=== PATIENT | female | born 1950 | race Caucasian/White ===

== ENCOUNTER 2022-09-27 12:59 | Outpatient (CLI) | payer MEDICARE, SELFPAY ==
--- NOTE | ~2022-09-27 | XR_ITS ---
EXAMINATION: XR shoulder LT min 2V DATE: 09/27/2022 13:29 INDICATION: Posterior left shoulder pain radiating to the neck. TECHNIQUE: 5 views of left shoulder were obtained. COMPARISON: None. FINDINGS: Bone alignment is normal. No fracture. There is mild osteoarthritis of glenohumeral joint a nd severe osteoarthritis of acromioclavicular joint. Calcified left hilar lymph nodes are consistent with old granulomatous disease. IMPRESSION: 1. Polyarticular osteoarthritis. Reviewed, dictated and finalized at location A.
== END 2022-09-27 13:00 | disposition home or self-care (01) ==
LOC: CHSIMG 13:08
DX: M25.512 Pain in left shoulder (principal); M19.012 Primary osteoarthritis, left shoulder
CPT/HCPCS: 73030

== ENCOUNTER 2024-02-16 12:59 | Emergency (ER) | payer MEDICARE, SELFPAY ==
[2024-02-16] VITALS (9 sets, daily range): BP systolic 123–138; BP diastolic 63–112; PULSE 66–75; RESP 16–22; TEMP 36.4; O2SAT 94–98
--- NOTE | ~2024-02-16 | CT_ITS ---
EXAMINATION: CTA BRAIN/CAROTID DATE: 02/16/2024 15:02 INDICATION: Headache TECHNIQUE: Computed tomographic angiography (CTA) of the head and neck was performed with 100 mL Omni paque-350 intravenous contrast. Multiplanar reconstructions and maximum intensity projection 3D-recon structions of the carotid arteries and of the intracranial arteries were created by the technologist on a separate workstation. Precontrast CT of the head was also obtained. Automated exposure control and iterative reconstruction technique were employed.The dose-length product was 1630.33 mGy-cm. COMPARISON: None. FINDINGS: Carotid arteries: Visualized aortic arch is normal in caliber with no dissection. The left vertebral artery is mildly d ominant. Small amount of nonhemodynamically significant atherosclerotic plaque at the origin of the l eft vertebral artery. There is atherosclerotic plaque with 20%% stenosis of the right carotid bulb re lative to normal distal artery lumen diameter (NASCET criteria). There is atherosclerotic plaque with 0% stenosis of the left carotid bulb relative to normal distal artery lumen diameter. Visualized upp er lungs are clear. Cervical soft tissues are unremarkable. Moderate to severe cervical spondylosis. Head: No acute intracranial hemorrhage, acute infarction or abnormal extra axial fluid collection. Small ol d lacunar infarct at the right side of the onel. There is moderate scattered white matter hypoattenua tion consistent with chronic small vessel ischemic disease. Symmetric prominence of the sulci consist ent with mild age-appropriate diffuse cerebral volume loss. Ventricles are normal and symmetric. No m ass/mass effect. No abnormally enhancing brain lesions on the postcontrast images. The orbits, [place] sinuses and mastoid air cells are normal. Intracranial arteries Left vertebral artery is dominant. There is a small amount of nonhemodynamically significant scleroti c plaque at the bilateral carotid siphons. There is no hemodynamically significant stenosis in the ve rtebral, basilar and internal carotid arteries. There are no aneurysms identified. Both A1 and P1 se gments are patent. There is a patent anterior communicating artery. Cerebral arterial arborization ap pears symmetric. IMPRESSION: 1. 20% stenosis of the right carotid bulb relative to normal distal artery lumen diameter (NASCET cri teria). 2. Small amount of atherosclerotic plaque with 0% stenosis of the left carotid bulb relative to tommie l distal artery lumen diameter. 3. Small old lacunar infarct at the right onel. No acute intracranial process or abnormally enhancing brain lesions. 4. Moderate scattered white matter hypoattenuation consistent with chronic small vessel ischemic dise ase. 5. Unremarkable cerebral CT angiogram with no hemodynamic significant stenosis, aneurysm or thrombosi s. Reviewed, dictated and finalized at location B. IMPRESSION: 1. 20% stenosis of the right carotid bulb relative to normal distal artery lume n diameter (NASCET criteria). 2. Small amount of atherosclerotic plaque with 0% stenosis of the left carotid bulb relative to normal distal artery lumen diameter. 3. Small old lacunar infarct at the right onel. No acute intracranial process o r abnormally enhancing brain lesions. 4. Moderate scattered white matter hypoattenuation consistent with chronic smal l vessel ischemic disease. 5. Unremarkable cerebral CT angiogram with no hemodynamic significant stenosis, aneurysm or thrombosis.
--- NOTE | 2024-02-16 13:40 | PC.NURSE ---
Pt resting comfortably. Son at bedside.
--- NOTE | 2024-02-16 13:47 | ECG_ITS ---
Test Date: 2024-02-16 14:02:02 Measurements Intervals [place] Rate: 67 P: 70 MI: 156 QRS: -12 QRSD: 98 T: 88 QT: 326 QTc: 345 Interpretive Statements SINUS RHYTHM DELAYED PRECORDIAL R/S TRANSITION NONSPECIFIC ST-T WAVE ABNORMALITY- DIFFUSE LEADS BORDERLINE ECG No previous ECG available for comparison Electronically Signed On 02-16-2024 14:16:00 CDT by Jagdish Newman D.O.
--- NOTE | 2024-02-16 13:54 | ED.NEUROSD ---
HPI - Neuro Symptoms/Deficit General Chief Complaint: Headache Stated Complaint: weakness Time Seen by Provider: 02/16/24 13:08 Source: patient and family (son) Mode of arrival: ambulatory Limitations: no limitations History of Present Illness HPI Narrative: 73 year old female is brought to the Emergency Department by son. Son is primary historian. Patient was seen by her PCP [Dr. Moore in [place]] today and told to come here for work up and admission. Son states they believe she had a TIA a week ago. 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 She complains of generalized weakness. She has frontal headache and some neck pain. Onset (ago): week(s) (1) Timing confirmed by: family member (son) Location: other (generalized) History of same: Yes Quality: weak Relieving factors: none Exacerbating factors: none On Anticoagulants: Yes Associated symptoms: confusion, headaches and weakness Treatments Prior to Arrival: none Related Data Home Medications Medication Instructions Recorded Confirmed albuterol sulfate 90 mcg/actuation 2 puff inhalation Q4-6H 02/16/24 02/16/24 aerosol inhaler atorvastatin 40 mg tablet 40 mg PO DAILY 02/16/24 02/16/24 clopidogrel 75 mg tablet 75 mg PO DAILY 02/16/24 02/16/24 dexamethasone sodium phosphate 0.1 3 drp EACH EAR BID 02/16/24 02/16/24 % eye drops diclofenac sodium 1 % topical gel 2 g topical BID 02/16/24 02/16/24 levothyroxine 125 mcg tablet 125 mcg PO DAILY 02/16/24 02/16/24 linaclotide 290 mcg capsule 290 mcg PO DAILY 02/16/24 02/16/24 (Linzess) omeprazole 40 mg capsule,delayed 40 mg PO DAILY 02/16/24 02/16/24 release oxybutynin chloride 10 mg 10 mg PO DAILY 02/16/24 02/16/24 tablet,extended release 24 hr potassium chloride 10 mEq 10 meq PO BID 02/16/24 02/16/24 capsule,extended release sertraline 100 mg tablet 100 mg PO DAILY 02/16/24 02/16/24 triamcinolone acetonide 0.1 % 1 applic topical BID 02/16/24 02/16/24 topical cream Allergies Allergy/AdvReac Type Severity Reaction Status Date / Time Penicillins Allergy Rash Verified 02/16/24 13:10 Review of Systems Review of Systems: All systems reviewed & are unremarkable except as noted in HPI and below Constitutional: Constitutional: Reports as per HPI, Denies chills, Reports fatigue, Denies fever(s) and Reports weakness Eyes: Eyes: Reports as per HPI and Denies change in vision ENT: Reports system reviewed and no additional complaints, except as documented Cardiovascular: Cardiovascular: Reports as per HPI and Denies chest pain Respiratory: Respiratory: Reports as per HPI, Denies cough and Denies dyspnea Gastrointestinal: Gastrointestinal: Reports as per HPI, Denies abdominal pain, Denies diarrhea, Denies nausea and Denies vomiting Genitourinary: Genitourinary: Reports no additional female genitourinary complaints, Denies nocturia and Denies dysuria Musculoskeletal: Musculoskeletal: Reports no additional musculoskeletal complaints Comments: generalized weakness Integumentary/Breasts: Skin/Breast: Reports system reviewed and no additional complaints, except as docu Neurologic: Reports system reviewed and no additional complaints, except as documented, Reports confusion, Reports headache(s), Denies focal weakness, Denies numbness and Reports weakness Psychiatric: Psychiatric: Reports no additional psychiatric complaints Endocrine: Endocrine: Reports no additional endocrine complaints Hematologic/Lymphatic: Hematologic/Lymphatic: Reports no additional hematologic/lymphatic complaints Allergic/Immunologic: Allergic/Immunologic: Reports no additional allergic/immunologic complaints Exam Const: General: healthy appearing, no acute distress and alert Nutritional Appearance: well nourished Orientation/consciousness: patient oriented x3 Limitations: no limitations HENMT: Head: normal to inspection Ears: external ears normal Face/Nose/Sinus: Normal external nose present Face and sinus: normal
[2024-02-16 14:16] LABS: Basophils Absolute Auto 0.06 K/mm3 (0.00-0.10); Basophils Percent Auto 1.1 % (0.0-1.0); Eosinophils Absolute Auto 0.13 K/mm3 (0.02-0.50); Eosinophils Percent Auto 2.5 % (1.0-6.0); Hematocrit 36.7 % (35.0-42.0); Immature Granulocyte Absolute 0.06 K/mm3 (0.00-0.00); Immature Granulocyte Percent A 1.1 % (0.0-0.0); Lymphocytes Absolute Auto 1.19 K/mm3 (1.10-4.50); Lymphocytes Percent Auto 22.8 % (18.0-42.0); Mean Platelet Volume 9.6 fl (9.2-11.8); Monocytes Absolute Auto 0.63 K/mm3 (0.10-0.90); Neutrophils Absolute Auto 3.16 K/mm3 (1.70-7.20); Neutrophils Percent Auto 60.5 % (50.0-70.0); Platelet Count Result 315 K/mm3 (150-420); Red Blood Count 4.08 M/mm3 (4.20-5.40); Red Cell Distribution Width 15.3 % (11.6-14.4); White Blood Count 5.2 K/mm3 (4.8-10.8)
[2024-02-16 14:34] LABS: Alanine Aminotransferase 19 U/L (14-59); Albumin Level 3.4 g/dL (3.4-5.0); Alkaline Phosphatase 82 U/L (46-116); Anion Gap 7 mmol/L (4-12); Aspartate Amino Transferase 15 U/L (15-37); Bilirubin,Total 0.5 mg/dL (0.00-1.00); Blood Urea Nitrogen 10 mg/dL (7-18); Calcium 8.5 mg/dL (8.5-10.1); Carbon Dioxide 30 mmol/L (21-32); Chloride 103 mmol/L (98-108); Estimated CRCL calculation 53 ml/min; Estimated Glomerular Filt Rate 57; Glucose 128 mg/dL (70-99); Osmolality Calculated 291 mOsm/kg (285-295); Potassium 3.3 mmol/L (3.5-5.1); Sodium 140 mmol/L (136-145); Total Protein 7.3 g/dL (6.4-8.2); Troponin I 5.7 ng/L (0.00-60.4)
--- NOTE | 2024-02-16 14:40 | PC.NURSE ---
Gave pt warm blanket. She has no complaints at this time. Son at bedside.
[2024-02-16 14:49] LABS: Lactic Acid Reflex 0.9 mmol/L (0.4-2.0)
--- NOTE | 2024-02-16 15:10 | PC.NURSE ---
Pt requesting to have IV removed. Explained that she needs to wait until all test results have been obtained. Son at bedside.
[2024-02-16 15:50] LABS: Add Urine Microscopic? YES; Appearance Urine Clear (Clear); Bilirubin Urine Negative (Negative); Blood Urine Trace-intact (Negative); Color Urine Yellow (Yellow); Glucose Urine UA Negative (Negative); Ketones Urine Negative (Negative); Leukocyte Esterase Ur Negative (Negative); Nitrate Urine Negative (Negative); Protein Urine Trace (Negative); Specific Grav Ur <= 1.005 (1.010-1.020); pH Urine 6.5 (5.0-8.0)
[2024-02-16 15:56] LABS: Bacteria Urine None seen /hpf; RBC Urine 0-2 /hpf (0-2); Squamous Epithelial Cell Urine Rare /hpf (Few); WBC Urine None seen /hpf (0-3)
--- NOTE | 2024-02-16 16:15 | PC.NURSE ---
Pt resting comfortably in stretcher. No needs at this time. Son at bedside.
== END 2024-02-16 16:29 | disposition home or self-care (01) ==
PROVIDERS: Emergency Provider Emergency Medicine
DX: R53.1 Weakness (principal); R51.9 Headache, unspecified; Z79.899 Other long term (current) drug therapy
CPT/HCPCS: 36415; 70496; 70498; 80053; 81001; 83605; 83735; 84484; 85025; 93005; 99284; Q9967